=== PATIENT | male | born 1945 | race African-American/Black ===

== ENCOUNTER 2016-07-04 13:59 | Inpatient (IN) | payer MEDICARE, OTHER ==
--- NOTE | ~2016-07-04 | CN ---
Consultation Report [facility] [address] [place]. [address] NAME: MARIANELA WASHINGTON JR : 43 STATUS : ADM IN PAT#: [id number] AGE: 70 ADM/REG DATE : 07/04/16 MR#: [id number] REPORT SERV DATE: 07/07/16 DICTATED BY: FLOR MONSALVE DATE: 07/05/16 REPORT STATUS : Draft TRANSCRIBED BY: MODJennifer DATE: 07/05/16 DATE OF CONSULTATION: 07/05/2016 This consult was done in Dr. Monsalve's absence. The patient is a 70-year-old black male, who resides in a shelter. He has chronic retention and has seen Dr. Monsalve for a number of years. He is known to have BPH and apparently did clean intermittent catheterization until he had a stroke and has been Layne dependent since that time. He developed gross hematuria in the shelter and apparently was passing clots and was brought to the emergency room. He had been on anticoagulants for a stroke at that time and this was stopped. A CT showed a catheter in place with some residual clot. It is not clear to me if this was done prior to or after irrigation attempts. His urine has been clear since last night. The patient also has chronic constipation and the CT showed a grossly distended sigmoid colon displacing the bladder to the right side. He was stable hemodynamically. His past history includes polycystic disease with chronically elevated creatinine. He also has hypertension, reflux, and BPH. There is a remote history of DVT. His stroke was in 2012 with a second stroke in 2014. The daughter stated he had a biopsy of 1.4 and elevated PSA. FAMILY HISTORY: Positive for the diabetes and polycystic disease. SOCIAL HISTORY: He is at [facility], does not drink, no longer smokes. MEDICATIONS: Included Eliquis, Catapres, Colace, Aricept, Cardura, hydralazine, Namenda, Lopressor, and sodium bicarbonate. ALLERGIES: HE IS ALLERGIC TO NONSTEROIDALS AND CONTRAST DYE. REVIEW OF SYSTEMS: Revealed no chest pain, shortness of breath. 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 He has had no blood per rectum. This is the first time he has really had gross hematuria. PHYSICAL EXAMINATION: GENERAL: He does respond appropriately. HEENT: Unremarkable. NECK: Supple. LUNGS: Clear. HEART: He has regular rate and rhythm without murmur or gallop. ABDOMEN: Distended, but is tympanitic. Bowel sounds are present and active. There is a large-bore catheter in place with ventral erosion of the urethra. The CBI was draining at a moderate rate and was crystal clear. I hand irrigated, cut, and got all the fluid instilled and with no hematuria or clot. Consultation Report [address] [place] [place]. [address] NAME: MARIANELA WASHINGTON JR : 44 STATUS : ADM IN PAT#: [id number] AGE: 70 ADM/REG DATE : 07/04/16 MR#: [id number] REPORT SERV DATE: 07/07/16 DICTATED BY: FLOR MONSALVE DATE: 07/05/16 REPORT STATUS : Draft TRANSCRIBED BY: MODL DATE: 07/05/16 LABORATORY DATA: His hemoglobin on admission was 8.6. After admission and hydration, it was 7.6 this morning. White count was 7.5. Today, creatinine was 3.99, which is consistent with his previous values. Urinalysis showed clumps of white cells and RBCs and a culture is pending. IMPRESSION: 1. Gross hematuria likely due to benign prostatic hyperplasia and most likely worsened by Eliquis. I did not see a mass in the bladder. However, he will need a cystoscopy at some point. 2. Benign prostatic hyperplasia and chronic retention. He has refused surgery in the past and after two strokes in the last four years, probably is not a candidate for surgery. He does have a ventral erosion of the urethra and consideration should be given for long-term suprapubic tube to avoid difficult catheterizations bleeding etc.. I will let Dr. Monsalve make this decision. Plan will be to wean his continuous bladder irrigation starting tomorrow. We will try to wean him off this and see if the urine will remain clear. Cystoscopy could be done in the office or in the OR on Thursday or Thursday. I did not think the cytology will need to be sent as well, but this will have to wait until the CBI is off. DICTATED BY: Nader Goyal III, M.D. OB/MODL Flor Monsalve M.D. / [id number] CC: Corina Zazueta M.D. Kymber Habenicht, M.D.
--- NOTE | ~2016-07-04 | HP ---
History And Physical [place] [id number] [facility] [place]. [address] NAME: MARIANELA WASHINGTON JR : 44 STATUS : ADM IN PAT#: [id number] AGE: 70 ADM/REG DATE : 07/04/16 MR#: [id number] REPORT SERV DATE: 07/04/16 DICTATED BY: RENNY GARCIA DATE: 07/04/16 REPORT STATUS : Draft TRANSCRIBED BY: MODL DATE: 07/04/16 DATE OF ADMISSION: 07/04/2016 CHIEF COMPLAINT: Hematuria. HISTORY OF PRESENT ILLNESS: The patient is a very pleasant 70-year-old male, who is a resident at [facility] for long-term care with past medical history of polycystic kidney disease stage 5, CKD, hypertension, GERD, chronic constipation, BPH with Layne under the care of Dr. Monsalve for Urology. Additionally, he has had history of DVT and acute thalamic stroke along with protein-calorie malnutrition and chronic anemia and pressure ulcers, who presents after having episodes of hematuria, dark urine from Layne, and mild right lower quadrant tenderness. Symptoms apparently have been slowly getting worse over the last 48 hours, have been constant, moderate severity, with lower quadrant tenderness, currently improved without radiation associated with hematuria and Layne. No headache, nausea, vomiting, fever, or chills have been noted. No cough, palpitations, or chest pains were noted. The patient reports nothing makes it worse, but nothing really improve symptoms, although symptoms at this time have finally resolved. The has difficulty when he has any specific pain, but has had history of enlarged prostate and is currently on blood-thinning medication, although renally dosed for prior DVT and stroke history. REVIEW OF SYSTEMS: For additional review of systems, 10-point review of systems negative per patient except that noted in HPI. Of note: GENERAL: No fever or chills. EYES: No eye pain or visual changes. ENT: No sore throat or congestion. NEURO: No headache or confusion. SKIN: Does have skin breakdowns and pressure ulcers. RESPIRATORY: No shortness of breath or cough. CV: No chest pain or palpitations. GI: No nausea, vomiting. : Does have hematuria and Layne. 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 ENDO: No fatigue or polyuria reported. HEME: Bleeding in urine, but no bruising. IMMUNOLOGIC: No rhinorrhea. PSYCH: No anxiety or confusion. PAST MEDICAL HISTORY: Polycystic kidney disease with CKD stage 5, longstanding uncontrolled hypertension, GERD, chronic constipation, BPH, hyperlipidemia, DVT history in extremity, depression, chronic anemia, acute left thalamic stroke in 2013 and additional stroke in 2015. SURGICAL HISTORY: Prostate biopsy. History And Physical [address] [address] NAME: MARIANELA WASHINGTON JR : 44 STATUS : ADM IN [facility]#: [id number] AGE: 70 ADM/REG DATE : 07/04/16 MR#: [id number] REPORT SERV DATE: 07/04/16 DICTATED BY: RENNY GARCIA DATE: 07/04/16 REPORT STATUS : Draft TRANSCRIBED BY: AUGUSTINE DATE: 07/04/16 FAMILY HISTORY: Polycystic kidney disease and diabetes. SOCIAL HISTORY: . Currently, a long-term care resident at [facility]. Previously smoker. No alcohol or illicits. ALLERGIES: TO NSAIDS AND IV CONTRAST. HOME MEDICATIONS: Norvasc, Eliquis which was stopped on 07/03/2016, Wellbutrin, vitamin D3, Catapres, vitamin B12, Colace, Aricept, Cardura, Pepcid, folic acid, hydralazine magnesium oxide, Namenda, lopressor, Provigil, vitamins, sodium bicarbonate, and barrier cream. PHYSICAL EXAMINATION: VITAL SIGNS: Blood pressure 149/70, temperature 98.1, weight 67.15, respirations 16, pulse 65, O2 saturations 100% on room air. GENERAL: No acute distress. Calm, pleasant, elderly, though mildly frail. EYES: No scleral icterus. EOMI. ENT: Nares patent. Tongue midline. Mildly dry mucous membranes. RESPIRATORY: Clear to auscultation. No wheezes or rales. CV: Regular rate. No rubs. GI: Soft, nontender, and nondistended. Negative rebound. No fluid wave. : Blood-tinged urine with CBI. No current clots. MUSCULOSKELETAL: Moves upper extremities and able to move lower right foot, unable to move left foot prior stroke with pressure ulcer, wraps on, Mepilex on pressure sites. SKIN: Warm and dry with at least stage 2 pressure ulcers. LYMPH: No cervical or supraclavicular lymphadenopathy. HEME: No bleeding or bruising on skin. NEURO: Alert and oriented. Does have left-sided paraplegia on legs, but able to recycle coordinator hand, right side stronger than left and will wiggle toe on right side. PSYCH: Appropriate mood and affect, pleasant. LABORATORY DATA AND IMAGING: CT abdomen and pelvis, no bowel obstruction suspected, but large volume of gas and stool seen, markedly redundant sigmoid colon. Residual thrombus within the bladder. CBC; WBC count 10.3, H and H 8.6 and 27.4, platelets 192. INR 1.2. CMP, sodium 145, potassium 3.9, bicarb 24, chloride 112, BUN and creatinine 85 and 4.05, glucose 101. LFTs within normal limits. Troponin negative. Urinalysis 100 protein, large blood, negative leukocyte esterase and nitrites, greater than 182 rbc's, 0 wbc's. ASSESSMENT AND PLAN: 1. Hematuria. 2. Chronic kidney disease stage 5. 3. Prior stroke with prior deep vein thrombosis history. 4. Anemia. 5. Stage 2 ulcers. 6. Protein-calorie malnutrition. History And Physical [address] [address] NAME: MARIANELA WASHINGTON : 44 STATUS : ADM IN [facility]#: [id number] AGE: 70 ADM/REG DATE : 07/04/16 MR#: [id number] REPORT SERV DATE: 07/04/16 DICTATED BY: RENNY GARCIA DATE: 07/04/16 REPORT STATUS : Draft TRANSCRIBED BY: AUGUSTINE DATE: 07/04/16 PLAN: 1. For hematuria, CBIs. Hold Eliquis. Serial H and H. Urology Dr. Monsalve to follow in a.m. and transfuse as indicated. 2. CKD stage 5, stable. We will monitor. Gentle IV fluids overnight. 3. Prior stroke and left extremity DVT. Eliquis currently on hold with acute bleed. Anticoagulation was renally dosed. We will need to monitor H and H closely. 4. Anemia. Monitor serial H and H secondary to CKD initially, possible acute decrease secondary to hematuria. 5. Stage 2 ulcers. Barrier care, Mediplex, and barrier precautions per floor protocol. 6. Protein-calorie malnutrition. Nutrition consult. All questions answered. Patient care to be resumed by Medicine team in a.m. DDN/MODL Renny Garcia MD / [id number] CC: Corina Zazueta M.D.
--- NOTE | ~2016-07-04 | OP ---
Record Of Operation [facility] [place]. [address] NAME: MARIANELA WASHINGTON JR : 44 STATUS : ADM IN [facility]#: [id number] AGE: 70 ADM/REG DATE : 07/04/16 MR#: [id number] REPORT SERV DATE: 07/08/16 DICTATED BY: FLOR MONSALVE DATE: 07/07/16 REPORT STATUS : Draft TRANSCRIBED BY: MODJennifer DATE: 07/07/16 DATE OF PROCEDURE: 07/07/2016 PREPROCEDURE DIAGNOSIS: Paraphimosis. POSTPROCEDURE DIAGNOSIS: Paraphimosis. PROCEDURE: Bedside reduction of paraphimosis. SURGEON: Flor Monsalve M.D. ANESTHESIA: None. PROCEDURE IN DETAIL: Steady pressure was held on the swollen foreskin until the edema had been reduced. Once the edema had been reduced, the foreskin was then replaced to its anatomic position. The patient tolerated well. MARJORIE/AUGUSTINE Flor Monsalve M.D. / [id number] CC: Corina Zamora M.D.
--- NOTE | ~2016-07-04 | CN ---
Consultation Report [facility] [address] [place]. [address] NAME: MARIANELA AVILEZ JR : 44 STATUS : ADM IN PAT#: [id number] AGE: 70 ADM/REG DATE : 07/04/16 MR#: [id number] REPORT SERV DATE: 07/07/16 DICTATED BY: KELLI WATERS DATE: 07/07/16 REPORT STATUS : Draft TRANSCRIBED BY: MODL DATE: 07/07/16 GI CONSULTATION DATE OF CONSULTATION: 07/07/2016 REASON FOR CONSULTATION: Evaluation and management of colonic distention. HISTORY OF PRESENT ILLNESS: Mr. Avilez is a 70-year-old male patient, who is known to Dr. Shelton, who presented on the 07/04/2016 with a chief complaint of hematuria. He is a resident of [facility]. He has a past medical history positive for polycystic kidney disease, stage V chronic kidney disease, hypertension, GERD, colonic mass found to be large tubular adenoma on colonoscopy in March 2016, who came in, had a CT scan done on admission, noncontrasted exam, showed no bowel obstruction, suspected he had a large volume of gas and stool and a markedly redundant sigmoid colon. He had a KUB done on 07/06/2016 showing increasing gas throughout the bowel. The sigmoid colon was the most distended, unchanged from previous studies, may be secondary to fecal impaction. The patient states that he came in secondary to the hematuria, but he felt like he could not urinate. He denies any abdominal pain. No nausea. No vomiting. No complaints of abdominal distention. I have discussed with the daughter that we will plan on placing a rectal tube after Dulcolax suppository. Reimaging his abdomen in the morning, asking the radiologist to give a specific diameter of colonic distention. If increased distention is noted, possibility of taking him for a colonic decompression on the 07/08/2016 was discussed with the patient and the daughter. I did discuss risks, benefits, alternatives, and complications with him to include, but not limited to risk of bleeding, perforation, infection, reaction to medications with cardiac and pulmonary side effects. They are agreeable to proceed if needed. PAST MEDICAL HISTORY: Positive for anemia with Hemoccult-positive stools; gastritis; colon polyps, cecal "tumor" found to be a large adenomatous polyp, not removed, but tattooed in March 2016; polycystic kidney disease; chronic kidney disease stage V; hypertension; GERD; chronic constipation; BPH; history of DVT; history of CVA; protein calorie malnutrition; pressure ulcers; chronic anemia; hematuria with a chronic Layne catheter for the last year per the daughter; surgical history of prostate biopsy; colonoscopy and EGD; family history of polycystic kidney disease and diabetes. SOCIAL HISTORY: . He lives at [facility]. Previous tobacco use. No alcohol or illicits. ALLERGIES: TO NSAIDS AND IV CONTRAST. HOME MEDICATIONS: Norvasc, Eliquis last dose 07/03/2016, Wellbutrin, vitamin D3, Catapres, vitamin B12, Colace, Aricept, Cardura, Pepcid, folic acid, hydralazine, Namenda, Lopressor, Provigil, vitamins, sodium bicarbonate. Consultation Report [address] [place]. [address] NAME: MARIANELA AVILEZ : 43 STATUS : ADM IN PAT#: [id number] AGE: 70 ADM/REG DATE : 07/04/16 MR#: [id number] REPORT SERV DATE: 07/07/16 DICTATED BY: KELLI WATERS DATE: 07/07/16 REPORT STATUS : Draft TRANSCRIBED BY: AUGUSTINE DATE: 07/07/16 REVIEW OF SYSTEMS: 10-point review of system is obtained with pertinent positives being addressed in the history of present illness. PHYSICAL EXAMINATION: VITAL SIGNS: Temperature is 98.2, pulse 77, respirations 18, blood pressure 131/61. NEUROLOGIC: He is an alert, chronically ill-appearing, male, resting in bed with no focal deficits. GENERAL: Cooperative, in no apparent distress. Awake, alert, and oriented. HEAD EARS, EYES, NOSE, AND THROAT: Anicteric. Pupils equal, round, reactive to light and accommodation. Normocephalic and atraumatic. NECK: No JVD. No palpable nodes. LUNGS: Clear in the upper lobes. Diminished bilaterally in the bases with normal respiratory effort exhibited. CARDIOVASCULAR SYSTEM: Regular rate rhythm. ABDOMEN: Soft, nontender with active bowel sounds. Mild distention noted. No rebound or guarding elicited on exam. EXTREMITIES: No edema. Normal distal pulses. SKIN: Warm, dry, and intact. PERTINENT LABORATORY DATA: Sodium is 148, potassium 4.1, BUN is 69, creatinine 3.58. White blood cell count is 8.4, hemoglobin 8.3, hematocrit 25.5. ASSESSMENT AND PLAN: 1. Colonic distention, questionable Whitmer's. 2. Constipation, resolved after multiple enemas. 3. Hematuria. PLAN: 1. Dulcolax suppository, done with rectal tube. 2. A.m. flat and upright abdominal films with the radiologist and attention to the diameter of the colon. 3. N.p.o. after midnight. 4. Possible colonic decompression in the morning. I will follow. DORENE/AUGUSTINE [place] ESHA Don / [id number] CC: Consultation Report [address] [address] NAME: MARIANELA AVILEZ JR : 44 STATUS : ADM IN PAT#: [id number] AGE: 70 ADM/REG DATE : 07/04/16 MR#: [id number] REPORT SERV DATE: 07/07/16 DICTATED BY: KELLI WATERS DATE: 07/07/16 REPORT STATUS : Draft TRANSCRIBED BY: AUGUSTINE DATE: 07/07/16 Corina Zamora M.D.
--- NOTE | ~2016-07-04 | DS ---
Discharge Summary [facility] [address] [place]. [address] NAME: MARIANELA WASHINGTON JR : 43 STATUS : ADM IN PAT#: [id number] AGE: 70 ADM/REG DATE : 07/04/16 MR#: [id number] REPORT SERV DATE: 07/10/16 DICTATED BY: REGLA PEREZ DATE: 07/10/16 REPORT STATUS : Draft TRANSCRIBED BY: MODL DATE: 07/10/16 ADMISSION DATE: 07/04/2016 DISCHARGE DATE: 07/10/2016 FINAL HOSPITAL DIAGNOSES: 1. Constipation. 2. Hematuria. 3. Chronic kidney disease. 4. Hypertension. 5. Gastroesophageal reflux disease. 6. History of deep venous thrombosis. 7. History of cerebrovascular accident. 8. Chronic protein-calorie malnutrition. CONSULTATIONS: Urology, Dr. Monsalve and GI. PROCEDURES: 1. Reduction of paraphimosis. 2. CT of the abdomen and pelvis done on the 3rd showing no bowel obstruction, large volume of gas and stool in the redundant sigmoid colon, residual thrombus within the bladder. CURRENT PHYSICAL FINDINGS AND HPI: Please see initial dictated H and P by Dr. Tavares. In brief, the patient is a 70-year-old male with the above medical history, presented from [facility] with complaint of hematuria, constipation, decreased p.o. intake. Vital signs at the time of admission, BP was initially 98/52. Average blood pressures have been running in the 150s to 160s. He has been afebrile during this hospital stay. His vitals have otherwise been stable. Labs: He presented with a creatinine of 4.05, which is approximately his baseline. Average creatinines have been roughly 3.5. No other significant electrolyte abnormalities. B12 was 5796. White count on admission was 10.3, hemoglobin count has been between 7 and 8 majority of his hospital stay. Blood cultures done on the 3rd had been negative at four days. HOSPITAL COURSE: The patient was admitted for above complaints. He was placed on bladder irrigation. Urology was consulted. He was placed on electrolyte protocol, IV fluids as needed. Home medications were reviewed and ordered appropriately. He was given mag citrate to assist with his bowel movement and his Layne catheter was left in. On his first hospital day, his clonidine, Wellbutrin, and Norvasc were discontinued. He was placed on Remeron to hopefully help with his appetite. His hydralazine was increased and he was given MiraLAX. A KUB was requested. He was also started on Marinol and his Aricept was increased, and he was started on Amitiza and Reglan. He did receive one unit of packed cells on the . Urology discontinued his CBI on the also. 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 Rectal tube was placed. Dulcolax was requested and serial KUBs were followed. Urology also performed a reduction of his paraphimosis and recommended he follow up on the for an outpatient cystoscopy given the hematuria which had now resolved off his anticoagulants. His bowel issue was resolved. His diet was increased and recommendations were just to maintain bowel movement with Amitiza and MiraLAX. Discharge Summary [place] [id number] [facility] [place]. [address] NAME: MARIANELA WASHINGTON JR : 43 STATUS : ADM IN [facility]#: [id number] AGE: 70 ADM/REG DATE : 07/04/16 MR#: [id number] REPORT SERV DATE: 07/10/16 DICTATED BY: REGLA PEREZ DATE: 07/10/16 REPORT STATUS : Draft TRANSCRIBED BY: AUGUSTINE DATE: 07/10/16 I assumed his care on the . His rectal tube was discontinued. Recommendations were given from Urology to restart his anticoagulants. A long discussion with the patient and POA about his long-term goals given his current situation and the opportunity to ask questions were answered. He was felt stable to discharge back to [facility] on the . DISPOSITION: Discharged to [facility]. MEDICATIONS: Vitamin D 2000 daily, Aricept was increased from 5 at bedtime to 10 at bedtime, Cardura 8 mg one a day. His p.r.n. clonidine was discontinued. Marinol 2.5 twice a day, a new Rx; Pepcid 20 b.i.d.; Eliquis 2.5 b.i.d.; Amitiza 24 one per day; Colace 100 one per day; magnesium oxide 400 one per day; Remeron 30 at bedtime, a new Rx; Provigil 100 b.i.d. His Wellbutrin SR 100 was not restarted as he was placed on the Remeron. Namenda 10 b.i.d.; Lopressor 25 b.i.d.; MiraLAX one packet daily; sodium bicarb 750 b.i.d.; hydralazine dose was increased from 25-50 and from b.i.d. to t.i.d.; Tylenol p.r.n.; Zofran 4 p.r.n.; B12 1000 will be restarted, although his last level was well within the normal limits; Norvasc 10 one per day will be restarted, although this may cause him some constipation and we need to monitor closely; folic acid 1 mg daily; vitamin daily; and barrier cream daily. TLF/CBL Regla Perez M.D. / [id number] CC: Corina Galvan M.D.
[~2016-07-04 13:59] MED LIST: ACET500CAP PO; APRES50 PO; ARICEPT5 PO; ASAB PO; B121000P IM; BARRIER CREAM; CARDU2 PO; CARDURA8 MG PO; CAT1 PO; COUMADIN6 MG PO; DSS PO; FOLIC PO; HCTZ25B PO; HYDROCHLOROT12.5 MG PO; KLOR-CON M2020 MEQ PO; L20 PO; LATUDA20 MG PO; LIPITOR20 PO; LOP50 PO; LOTE40 PO; MAGOX4 PO; MARI2.5 PO; MCZ25 PO; NAMENDA10 MG PO; NEPHRO PO; NICODERM C21 MG/241 TOP; NORCO1 TA1 PO; NORV10 PO; NXL9 PO; PEP20 PO; PRENATABS RX PO; PROCRIT40 SC; PROTONIX PO; PROVIGIL1 PO; REMERON30 MG PO; SODBICAR10 PO; SPIRIVA INH; T PO; VITAMIN D PO; VITAMIN D31000 UNIT PO
[2016-07-04 14:32] LABS: BASOPHILS 0.4 %; BASOPHILS ABSOLUTE 0.04 10/3/uL (0.0-0.16); EOSINOPHILS 1.6 %; EOSINOPHILS ABSOLUTE 0.16 10/3/uL (0.0-0.53); HEMATOCRIT 27.4 % (40.0-51.0); HEMOGLOBIN 8.6 g/dL (13.6-17.8); IMMATURE GRANULOCYTES 0.4 %; IMMATURE GRANULOCYTES ABSOLUTE 0.04 10/3/uL (0.0-0.11); LYMPHOCYTES ABSOLUTE 1.44 10/3/uL (0.67-4.30); MEAN CORPUS HGB CONC 31.4 g/dL (32.0-36.0); MEAN CORPUSCULAR HEMOGLOB 31.3 pg (26.0-34.0); MEAN CORPUSCULAR VOLUME 99.6 fL (80-100); MEAN PLATELET VOLUME 10.4 fL (9.2-13.0); MONOCYTES 3.9 %; NEUTROPHILS 79.7 %; NEUTROPHILS ABSOLUTE 8.24 10/3/uL (2.02-8.40); PLATELET COUNT 192 10/3/uL (150-400); RBC DISTRIBUTION WIDTH 16.1 % (12.0-16.0); RED CELL COUNT 2.75 10/6/uL (4.7-6.1); WHITE BLOOD CELLS 10.3 10/3/uL (4.5-10.5)
[2016-07-04 14:33] LABS: MANUAL DIFF NO %
[2016-07-04 14:47] LABS: A/G RATIO 0.6 (0.7-1.9); ALBUMIN 2.5 G/DL (3.5-5.0); ALKALINE PHOSPHATASE 81 U/L (45-117); BUN (BLOOD UREA NITROGEN) 85 MG/DL (6-23); CALCIUM, SERUM 8.7 MG/DL (8.5-10.4); CHLORIDE, SERUM 112 MMOL/L (96-112); CO2 (CARBON DIOXIDE) 24 MMOL/L (24-34); CREATININE 4.05 MG/DL (0.70-1.30); GFR AFRICAN AMERICAN 16 ML/MIN (>=60); GFR NON AFRICAN AMERICAN 14 ML/MIN (>=60); GLOBULIN 4.5 G/DL (2.5-4.1); GLUCOSE, SERUM 101 MG/DL (60-99); POTASSIUM, SERUM 3.9 MMOL/L (3.5-5.3); SGOT(AST) 20 U/L (5-40); SGPT(ALT) 32 U/L (5-65); SODIUM, SERUM 145 MMOL/L (135-148); TOTAL BILIRUBIN 0.3 MG/DL (0-1.2)
[2016-07-04] MEDS ORDERED: ELIQUIS 2.5 MG2.5 MG PO (16:21)
[2016-07-04] MEDS ORDERED: PEP20 PO (16:22)
[2016-07-04] MEDS ORDERED: NORV10 PO (16:23)
[2016-07-04] MEDS ORDERED: SODBICAR10 PO (16:23)
[2016-07-04] MEDS ORDERED: B121000P IM (16:24)
[2016-07-04] MEDS ORDERED: VITAMIN D31000 UNIT PO (16:24)
[2016-07-04] MEDS ORDERED: CARDURA8 MG PO (16:25)
[2016-07-04] MEDS ORDERED: FOLIC PO (16:25)
[2016-07-04] MEDS ORDERED: PRENAVITE PO (16:25)
[2016-07-04] MEDS ORDERED: PROVIGIL1 PO (16:25)
[2016-07-04] MEDS ORDERED: DSS PO (16:26)
[2016-07-04] MEDS ORDERED: NAMENDA10 MG PO (16:26)
[2016-07-04] MEDS ORDERED: APRES25 PO (16:26)
[2016-07-04] MEDS ORDERED: LOP25 PO (16:27)
[2016-07-04] MEDS ORDERED: MAGOX4 PO (16:28)
[2016-07-04] MEDS ORDERED: WELLSR100 PO (16:28)
[2016-07-04] MEDS ORDERED: ARICEPT5 PO (16:28)
[2016-07-04] MEDS ORDERED: CAT1 PO (16:29)
[2016-07-04] MEDS ORDERED: BARRIER CREAM TOP (16:30)
[2016-07-04 17:23] LABS: WBC (NOT ORDERED) (RFLEX) 0 (0-5)
[2016-07-04 17:33] LABS: INTERNATIONAL NORMAL RATI 1.2 UNITS (-); PROTIME (NOT ORD) 15.5 SEC (12.0-14.5)
[2016-07-04 17:41] LABS: TROPONIN I <0.02 NG/ML (<0.05)
[2016-07-04 17:45] LABS: ASCORBIC ACID (UR NOT ORDER) NEG (NEG); BILIRUBIN, URINE NEGATIVE (NEG); ER URINALYSIS TAT 0 Hrs 23 Mins; KETONE, URINE 20 MG/DL (NEG); LEUKOCYTE ESTERASE(NOT OR NEG (NEG); NITRITE (URINE) NEG (NEG)
[2016-07-04 23:04] LABS: HEMATOCRIT 25.1 % (40.0-51.0)
[2016-07-05 06:48] LABS: HEMATOCRIT 23.3 % (40.0-51.0); HEMOGLOBIN 7.6 g/dL (13.6-17.8); MEAN CORPUS HGB CONC 32.6 g/dL (32.0-36.0); MEAN CORPUSCULAR HEMOGLOB 32.6 pg (26.0-34.0); MEAN PLATELET VOLUME 9.2 fL (9.2-13.0); RED CELL COUNT 2.33 10/6/uL (4.7-6.1); WHITE BLOOD CELLS 7.5 10/3/uL (4.5-10.5)
[2016-07-05 06:53] LABS: MANUAL DIFF YES %; PLATELET COUNT 134 10/3/uL (150-400)
[2016-07-05 07:00] LABS: BUN (BLOOD UREA NITROGEN) 82 MG/DL (6-23); CALCIUM, SERUM 8.3 MG/DL (8.5-10.4); CHLORIDE, SERUM 113 MMOL/L (96-112); CO2 (CARBON DIOXIDE) 24 MMOL/L (24-34); CREATININE 3.99 MG/DL (0.70-1.30); GFR AFRICAN AMERICAN 16 ML/MIN (>=60); GFR NON AFRICAN AMERICAN 14 ML/MIN (>=60); GLUCOSE, SERUM 91 MG/DL (60-99); POTASSIUM, SERUM 3.4 MMOL/L (3.5-5.3); SODIUM, SERUM 147 MMOL/L (135-148)
[2016-07-05 07:30] LABS: BAND NEUTROPHILS 3 %; BASOPHILS 2 %; BASOPHILS ABSOLUTE (CALC) 0.15 10/3/uL (0.0-0.16); LYMPHOCYTES 16 %; MONOCYTES 1 %; MONOCYTES ABSOLUTE (CALC) 0.08 10/3/uL (0.21-1.20); NEUTROPHILS ABSOLUTE (CALC) 6.08 10/3/uL (2.02-8.40); SEGMENTED NEUTROPHIL (0) 78 %; TOTAL NUCLEATED CELLS 100
[2016-07-05 07:31] LABS: ANISOCYTOSIS 1+ (5-10/OIF) (0-5/OIF); PLATELET ESTIMATE SLT DEC (ADEQUATE)
[2016-07-05 15:38] LABS: HEMATOCRIT 22.7 % (40.0-51.0); HEMOGLOBIN 7.1 g/dL (13.6-17.8)
[2016-07-06 08:28] LABS: BUN (BLOOD UREA NITROGEN) 76 MG/DL (6-23); CALCIUM, SERUM 8.4 MG/DL (8.5-10.4); CHLORIDE, SERUM 114 MMOL/L (96-112); CO2 (CARBON DIOXIDE) 24 MMOL/L (24-34); CREATININE 3.79 MG/DL (0.70-1.30); GFR AFRICAN AMERICAN 17 ML/MIN (>=60); GFR NON AFRICAN AMERICAN 15 ML/MIN (>=60); GLUCOSE, SERUM 87 MG/DL (60-99); PHOSPHORUS, SERUM 3.3 MG/DL (2.5-4.5); POTASSIUM, SERUM 3.5 MMOL/L (3.5-5.3); SODIUM, SERUM 146 MMOL/L (135-148)
[2016-07-06 13:26] LABS: HEMATOCRIT 23.3 % (40.0-51.0); HEMOGLOBIN 7.3 g/dL (13.6-17.8)
[2016-07-07 06:12] LABS: BASOPHILS 0.6 %; BASOPHILS ABSOLUTE 0.05 10/3/uL (0.0-0.16); EOSINOPHILS 3.8 %; EOSINOPHILS ABSOLUTE 0.32 10/3/uL (0.0-0.53); HEMATOCRIT 25.5 % (40.0-51.0); HEMOGLOBIN 8.3 g/dL (13.6-17.8); IMMATURE GRANULOCYTES 0.2 %; IMMATURE GRANULOCYTES ABSOLUTE 0.02 10/3/uL (0.0-0.11); LYMPHOCYTES 16.7 %; MEAN CORPUS HGB CONC 32.5 g/dL (32.0-36.0); MEAN CORPUSCULAR HEMOGLOB 32.2 pg (26.0-34.0); MEAN CORPUSCULAR VOLUME 98.8 fL (80-100); MEAN PLATELET VOLUME 9.8 fL (9.2-13.0); MONOCYTES 7.3 %; MONOCYTES ABSOLUTE 0.61 10/3/uL (0.21-1.20); NEUTROPHILS 71.4 %; NEUTROPHILS ABSOLUTE 5.97 10/3/uL (2.02-8.40); PLATELET COUNT 159 10/3/uL (150-400); RBC DISTRIBUTION WIDTH 16.9 % (12.0-16.0); RED CELL COUNT 2.58 10/6/uL (4.7-6.1); WHITE BLOOD CELLS 8.4 10/3/uL (4.5-10.5)
[2016-07-07 06:20] LABS: MANUAL DIFF NO %
[2016-07-07 07:24] LABS: CALCIUM, SERUM 8.7 MG/DL (8.5-10.4); CHLORIDE, SERUM 117 MMOL/L (96-112); CHOLESTEROL 85 MG/DL (< 200); CO2 (CARBON DIOXIDE) 22 MMOL/L (24-34); CREATININE 3.58 MG/DL (0.70-1.30); FERRITIN 484 NG/ML (26-388); GFR AFRICAN AMERICAN 19 ML/MIN (>=60); GFR NON AFRICAN AMERICAN 16 ML/MIN (>=60); GLUCOSE, SERUM 78 MG/DL (60-99); HDL CHOLESTEROL 43 MG/DL (> 39); LDL CHOLESTEROL 33 MG/DL (< 130); NON-HDL CHOLESTEROL 42 MG/DL (< 160); POTASSIUM, SERUM 4.1 MMOL/L (3.5-5.3); SODIUM, SERUM 148 MMOL/L (135-148); TRIGLYCERIDE 46 MG/DL (< 150)
[2016-07-07 07:26] LABS: BUN (BLOOD UREA NITROGEN) 69 MG/DL (6-23)
[2016-07-08 06:42] LABS: CALCIUM, SERUM 8.5 MG/DL (8.5-10.4); CHLORIDE, SERUM 112 MMOL/L (96-112); CO2 (CARBON DIOXIDE) 23 MMOL/L (24-34); CREATININE 3.48 MG/DL (0.70-1.30); GFR AFRICAN AMERICAN 19 ML/MIN (>=60); GFR NON AFRICAN AMERICAN 17 ML/MIN (>=60); POTASSIUM, SERUM 3.7 MMOL/L (3.5-5.3); SODIUM, SERUM 145 MMOL/L (135-148)
[2016-07-08 06:43] LABS: BUN (BLOOD UREA NITROGEN) 60 MG/DL (6-23); GLUCOSE, SERUM 94 MG/DL (60-99); PHOSPHORUS, SERUM 2.3 MG/DL (2.5-4.5)
[2016-07-10 07:23] LABS: BASOPHILS 0.5 %; BASOPHILS ABSOLUTE 0.05 10/3/uL (0.0-0.16); EOSINOPHILS 1.8 %; EOSINOPHILS ABSOLUTE 0.17 10/3/uL (0.0-0.53); HEMATOCRIT 27.3 % (40.0-51.0); HEMOGLOBIN 9.1 g/dL (13.6-17.8); IMMATURE GRANULOCYTES 0.2 %; IMMATURE GRANULOCYTES ABSOLUTE 0.02 10/3/uL (0.0-0.11); LYMPHOCYTES 18.1 %; LYMPHOCYTES ABSOLUTE 1.67 10/3/uL (0.67-4.30); MEAN CORPUS HGB CONC 33.3 g/dL (32.0-36.0); MEAN CORPUSCULAR HEMOGLOB 32.7 pg (26.0-34.0); MEAN CORPUSCULAR VOLUME 98.2 fL (80-100); MEAN PLATELET VOLUME 9.2 fL (9.2-13.0); MONOCYTES 8.6 %; MONOCYTES ABSOLUTE 0.79 10/3/uL (0.21-1.20); NEUTROPHILS 70.8 %; NEUTROPHILS ABSOLUTE 6.53 10/3/uL (2.02-8.40); RBC DISTRIBUTION WIDTH 15.9 % (12.0-16.0); RED CELL COUNT 2.78 10/6/uL (4.7-6.1); WHITE BLOOD CELLS 9.2 10/3/uL (4.5-10.5)
[2016-07-10 07:24] LABS: MANUAL DIFF NO %; PLATELET COUNT 210 10/3/uL (150-400)
[2016-07-10 07:34] LABS: BUN (BLOOD UREA NITROGEN) 46 MG/DL (6-23); CALCIUM, SERUM 8.6 MG/DL (8.5-10.4); CHLORIDE, SERUM 111 MMOL/L (96-112); CO2 (CARBON DIOXIDE) 21 MMOL/L (24-34); CREATININE 3.24 MG/DL (0.70-1.30); GFR AFRICAN AMERICAN 21 ML/MIN (>=60); GFR NON AFRICAN AMERICAN 18 ML/MIN (>=60); GLUCOSE, SERUM 103 MG/DL (60-99); POTASSIUM, SERUM 3.7 MMOL/L (3.5-5.3); SODIUM, SERUM 144 MMOL/L (135-148)
== END 2016-07-10 16:34 | DRG 726 ==
LOC: ER 13:59 → 4SO 16:52
PROVIDERS: Emergency Medicine; Internal Medicine; Student in an Organized Health Care Education/Training Program
PROC: 0VNTXZZ Release Prepuce, External Approach (ICD-10-PCS; principal; 2016-07-07)
DX: N40.1 Benign prostatic hyperplasia with lower urinary tract symptoms (principal); E46 Unspecified protein-calorie malnutrition; D68.32 Hemorrhagic disorder due to extrinsic circulating anticoagulants; I12.0 Hypertensive chronic kidney disease with stage 5 chronic kidney disease or end stage renal disease; N18.5 Chronic kidney disease, stage 5; D62 Acute posthemorrhagic anemia; Q61.3 Polycystic kidney, unspecified; I69.354 Hemiplegia and hemiparesis following cerebral infarction affecting left non-dominant side; Z68.1 Body mass index [BMI] 19.9 or less, adult; R31.0 Gross hematuria; T45.515A Adverse effect of anticoagulants, initial encounter; Y92.129 Unspecified place in nursing home as the place of occurrence of the external cause; K21.9 Gastro-esophageal reflux disease without esophagitis; K59.00 Constipation, unspecified; Z86.718 Personal history of other venous thrombosis and embolism; Z79.01 Long term (current) use of anticoagulants; E78.5 Hyperlipidemia, unspecified; F32.9 Major depressive disorder, single episode, unspecified; Z87.891 Personal history of nicotine dependence; D64.9 Anemia, unspecified; L89.622 Pressure ulcer of left heel, stage 2; Z88.8 Allergy status to other drugs, medicaments and biological substances; Z91.041 Radiographic dye allergy status; K63.89 Other specified diseases of intestine; R33.8 Other retention of urine; N36.8 Other specified disorders of urethra; N47.2 Paraphimosis; R62.7 Adult failure to thrive
CPT/HCPCS: 36415; 74000; 74176; 80048; 80053; 80061; 81001; 82330; 82607; 82728; 82962; 83690; 83735; 84100; 84484; 85014; 85018; 85025; 85610; 85730; 86850; 86900; 86901; 86920; 87040; 99285; A9270-GY; J2765; P9016

== ENCOUNTER 2016-07-28 13:34 | Emergency (ER) | payer MEDICARE, OTHER ==
[~2016-07-28 13:34] MED LIST changes: +APRES25 PO; +BARRIER CREAM TOP; +ELIQUIS 2.5 MG2.5 MG PO; +LOP25 PO; +PRENAVITE PO; +WELLSR100 PO
[2016-07-28 13:41] LABS: BASOPHILS 0.2 %; BASOPHILS ABSOLUTE 0.03 10/3/uL (0.0-0.16); EOSINOPHILS 0.2 %; EOSINOPHILS ABSOLUTE 0.03 10/3/uL (0.0-0.53); ER CBC TAT 0 Hrs 02 Mins; HEMATOCRIT 27.3 % (40.0-51.0); HEMOGLOBIN 8.8 g/dL (13.6-17.8); IMMATURE GRANULOCYTES 0.2 %; IMMATURE GRANULOCYTES ABSOLUTE 0.02 10/3/uL (0.0-0.11); LYMPHOCYTES ABSOLUTE 0.62 10/3/uL (0.67-4.30); MEAN CORPUS HGB CONC 32.2 g/dL (32.0-36.0); MEAN CORPUSCULAR HEMOGLOB 31.5 pg (26.0-34.0); MEAN CORPUSCULAR VOLUME 97.8 fL (80-100); MEAN PLATELET VOLUME 9.3 fL (9.2-13.0); MONOCYTES 3.4 %; MONOCYTES ABSOLUTE 0.43 10/3/uL (0.21-1.20); NEUTROPHILS ABSOLUTE 11.38 10/3/uL (2.02-8.40); PLATELET COUNT 183 10/3/uL (150-400); RED CELL COUNT 2.79 10/6/uL (4.7-6.1); WHITE BLOOD CELLS 12.5 10/3/uL (4.5-10.5)
[2016-07-28 13:42] LABS: MANUAL DIFF NO %
[2016-07-28 13:55] LABS: INTERNATIONAL NORMAL RATI 1.6 UNITS (-); PARTIAL THROMBO TIME 35.9 SEC (22.5-37.2)
[2016-07-28 13:57] LABS: PROTIME (NOT ORD) 18.6 SEC (12.0-14.5)
[2016-07-28 13:59] LABS: BUN (BLOOD UREA NITROGEN) 46 MG/DL (6-23); CALCIUM, SERUM 8.4 MG/DL (8.5-10.4); CHEST PAIN PROFILE TAT 0 Hrs 20 Mins; CHLORIDE, SERUM 112 MMOL/L (96-112); CO2 (CARBON DIOXIDE) 27 MMOL/L (24-34); CREATININE 4.76 MG/DL (0.70-1.30); GFR AFRICAN AMERICAN 13 ML/MIN (>=60); GFR NON AFRICAN AMERICAN 11 ML/MIN (>=60); GLUCOSE, SERUM 128 MG/DL (60-99); SODIUM, SERUM 147 MMOL/L (135-148); TROPONIN I <0.02 NG/ML (<0.05)
== END 2016-07-28 19:15 | disposition home or self-care (01) ==
LOC: ER 13:34
PROVIDERS: Emergency Medicine
DX: R53.1 Weakness (principal); R55 Syncope and collapse; E87.6 Hypokalemia; I12.9 Hypertensive chronic kidney disease with stage 1 through stage 4 chronic kidney disease, or unspecified chronic kidney disease; N18.3 Chronic kidney disease, stage 3 (moderate); F32.9 Major depressive disorder, single episode, unspecified; E11.9 Type 2 diabetes mellitus without complications; Z86.718 Personal history of other venous thrombosis and embolism; Z91.041 Radiographic dye allergy status; Z88.8 Allergy status to other drugs, medicaments and biological substances; Z79.899 Other long term (current) drug therapy
CPT/HCPCS: 70450; 71010; 80048; 83735; 84484; 85025; 85610; 85730; 93005; 99285; A9270-GY